=== PATIENT | female | born 1980 | race Caucasian/White ===

== ENCOUNTER 2020-10-02 16:54 | Emergency (ER) | payer OTHER ==
[~2020-10-02] VITALS: Ht 162.6 cm; Wt 88.5 kg
[~2020-10-02 16:54] MED LIST: BIRTH CONTROL PILLS
[2020-10-02 17:04] VITALS: BP 147/85
--- NOTE | 2020-10-02 17:18 | NUR ---
39/F BIB SELF C/O RASH, R BACK PAIN X 2 MONTHS. DENIES N/V/D.[id number] WITH EVEN AND STEADY GAIT; LUNGS CLEAR BL; HR EVEN AND REGULAR; PT DENIES ANY FEVER, CP, SOB, OR COUGH AT THIS TIME; PATIENT STATES PAIN OF 7/10 AT THIS TIME. PATIENT POSITIONED FOR COMFORT; HOB ELEVATED; BEDRAILS UP X1; BED DOWN. ER MD MADE AWARE OF PT STATUS.
--- NOTE | 2020-10-02 17:20 | NUR ---
Patient being evaluated by ALYX TRAN at bedside.
[2020-10-02] MEDS ORDERED: predniSONE 20 MG TAB PO ONE (17:35)
--- NOTE | 2020-10-02 18:01 | NUR ---
Patient being reevaluated by ALYX TRAN at bedside.
[2020-10-02] MEDS ORDERED: LORA10OD44 PO (18:13)
[2020-10-02] MEDS ORDERED: MYCO TP (18:13)
[2020-10-02] MEDS ORDERED: PRED20TA5 PO (18:13)
--- NOTE | 2020-10-02 18:21 | NUR ---
Patient discharged with v/s stable. Written and verbal after care instructions given and explained. Patient alert, oriented and verbalized understanding of instructions. Ambulatory with steady gait. All questions addressed prior to discharge. ID band removed. Patient advised to follow up with PMD. Rx of loratadine, nystatin & prednisone given. Patient educated on indication of medication including possible reaction and side effects. Opportunity to ask questions provided and answered.
[2020-10-02 18:22] VITALS: BP 147/85
== END 2020-10-02 18:21 | disposition home or self-care (01) ==
LOC: MED 16:54
DX: R21 Rash and other nonspecific skin eruption (principal); R00.2 Palpitations; M54.5 Low back pain; Z79.899 Other long term (current) drug therapy
CPT/HCPCS: 81002; 81025; 99283; J7512